=== PATIENT | male | born 1960 | race Caucasian/White ===

== ENCOUNTER 2016-10-29 13:31 | Emergency (ER) | payer BC, MEDICARE ==
[2016-10-29 13:21] LABS: BASOPHILS 0.3 %; BASOPHILS ABSOLUTE 0.04 10/3/uL (0.0-0.16); EOSINOPHILS 0.6 %; EOSINOPHILS ABSOLUTE 0.09 10/3/uL (0.0-0.53); HEMATOCRIT 45.8 % (40.0-51.0); HEMOGLOBIN 14.3 g/dL (13.6-17.8); IMMATURE GRANULOCYTES 1.1 %; IMMATURE GRANULOCYTES ABSOLUTE 0.16 10/3/uL (0.0-0.11); LYMPHOCYTES 12.8 %; LYMPHOCYTES ABSOLUTE 1.82 10/3/uL (0.67-4.30); MEAN CORPUS HGB CONC 31.2 g/dL (32.0-36.0); MEAN CORPUSCULAR HEMOGLOB 26.8 pg (26.0-34.0); MEAN PLATELET VOLUME 9.4 fL (9.2-13.0); MONOCYTES 10.4 %; MONOCYTES ABSOLUTE 1.48 10/3/uL (0.21-1.20); NEUTROPHILS 74.8 %; NEUTROPHILS ABSOLUTE 10.66 10/3/uL (2.02-8.40); PLATELET COUNT 329 10/3/uL (150-400); RBC DISTRIBUTION WIDTH 17.4 % (12.0-16.0); RED CELL COUNT 5.34 10/6/uL (4.7-6.1)
[2016-10-29 13:22] LABS: ER CBC TAT 0 Hrs 08 Mins; MANUAL DIFF NO %; MEAN CORPUSCULAR VOLUME 85.8 fL (80-100); WHITE BLOOD CELLS 14.3 10/3/uL (4.5-10.5)
[2016-10-29 13:30] LABS: INTERNATIONAL NORMAL RATI 3.7 UNITS (-); PARTIAL THROMBO TIME 55.5 SEC (22.5-37.2)
[~2016-10-29 13:31] MED LIST: ADVAIR INH; ASAB PO; ASABAYER PO; AXIRON90 ML TOP; BUFFERIN PO; C5 PO; CENTRUM TAB1 TAB PO; CO Q-10200 MG PO; COREG CR80 MG PO; COREG12 PO; COREG25 PO; CORLANOR PO; COUMADIN7.5 MG PO; D 5000 PO; DHE1 PO; DIOV160 PO; DSS PO; EFFEX25 PO; EFFEX75 PO; EMPAGLIFLOZIN PO; ENDOCET1 TAB PO; FEMARA PO; FERROUS GLUCONATE PO; FISH OIL300 MG PO; FORTAMET1000 MG PO; HUMAPUMP SC; HYDROCHLOROT12.5 MG PO; JARDI25B PO; KLONO5 PO; L20 PO; NASONEX NAS; NIACIN PO; NOVLOGPUMP SC; PACERONE400 MG PO; PLAVIX PO; PRIN2.5 PO; PROAIR HFA INH; PROTONIX20 MG PO; SACU1TAB PO; SINGULAIR1 PO; SLO-NIACIN250 MG PO; SPIRIVA INH; SPIRO25 PO; SUPER B COMP PO; SYN1 PO; SYN112 PO; SYN125 PO; TESTOST CYP100 MG/ML IM; VICTOZA18 MG/3 ML SC; VITAMIN D1000 UNI1 PO; WELCHOL 625 MG625 MG OR; XOLAIR SC; ZYRTEC ALLGY10 MG PO
[2016-10-29 13:37] LABS: PROTIME (NOT ORD) 36.4 SEC (12.0-14.5)
[2016-10-29 13:38] LABS: BUN (BLOOD UREA NITROGEN) 22 MG/DL (6-23); CALCIUM, SERUM 8.5 MG/DL (8.5-10.4); CHEST PAIN PROFILE TAT 0 Hrs 24 Mins; CHLORIDE, SERUM 106 MMOL/L (96-112); CO2 (CARBON DIOXIDE) 29 MMOL/L (24-34); CREATININE 1.56 MG/DL (0.70-1.30); GFR AFRICAN AMERICAN 57 ML/MIN (>=60); GFR NON AFRICAN AMERICAN 49 ML/MIN (>=60); GLUCOSE, SERUM 66 MG/DL (60-99); POTASSIUM, SERUM 4.5 MMOL/L (3.5-5.3); SODIUM, SERUM 140 MMOL/L (135-148); TROPONIN I <0.02 NG/ML (<0.05)
[2016-10-29 13:53] LABS: ASCORBIC ACID (UR NOT ORDER) NEG (NEG); BILIRUBIN, URINE NEGATIVE (NEG); ER URINALYSIS TAT 0 Hrs 12 Mins; KETONE, URINE TRACE MG/DL (NEG); LEUKOCYTE ESTERASE(NOT OR NEG (NEG); NITRITE (URINE) NEG (NEG); WBC (NOT ORDERED) (RFLEX) 1 (0-5)
[2016-10-29 13:58] LABS: INFLUENZA A SCREEN NEGATIVE (NEGATIVE); INFLUENZA B SCREEN NEGATIVE (NEGATIVE)
== END 2016-10-29 16:51 | disposition home or self-care (01) ==
LOC: ER 13:31
PROVIDERS: Emergency Medicine
DX: J44.9 Chronic obstructive pulmonary disease, unspecified (principal); I11.0 Hypertensive heart disease with heart failure; I50.9 Heart failure, unspecified; E10.9 Type 1 diabetes mellitus without complications; I48.92 Unspecified atrial flutter; Z95.5 Presence of coronary angioplasty implant and graft; Z95.1 Presence of aortocoronary bypass graft; Z88.5 Allergy status to narcotic agent; Z88.8 Allergy status to other drugs, medicaments and biological substances; Z79.01 Long term (current) use of anticoagulants; Z79.82 Long term (current) use of aspirin; Z79.4 Long term (current) use of insulin; Z79.899 Other long term (current) drug therapy
CPT/HCPCS: 71010; 80048; 81001; 83605; 83735; 83880; 84484; 85025; 85610; 85730; 87040; 87150; 87804; 93005; 96361; 96365; 96366; 96375; 99285; J1956; J2930